=== PATIENT | female | born 1960 | race Caucasian/White ===

== ENCOUNTER 2017-05-11 09:29 | Outpatient (CLI) | payer MEDICAID ==
--- NOTE | 2017-05-11 11:24 | XRAY Report ---
COMPLETE CERVICAL SPINE: 05/11/2017 CLINICAL INDICATION: Neck pain. FINDINGS: AP, lateral, oblique, odontoid views of the cervical spine demonstrate reversal of the nor mal cervical lordosis. Degenerative disk and facet disease is present, with disk space narrowing wor st at C5-6. There is osseous neural foraminal narrowing on the left at C5-6 and C6-7. There is no e vidence of acute fracture. The prevertebral soft tissues appear unremarkable. IMPRESSION: DEGENERATIVE CHANGES, WITH LEFT-SIDED OSSEOUS NEURAL FORAMINAL NARROWING. JOB #: [id number] EXT JOB #:[id number]
== END 2017-05-11 09:30 ==
LOC: DI 09:29
PROVIDERS: ATTEND Family Medicine
DX: M47.892 Other spondylosis, cervical region (principal); M50.30 Other cervical disc degeneration, unspecified cervical region
CPT/HCPCS: 72050

== ENCOUNTER 2017-06-15 10:16 | Outpatient (CLI) | payer MEDICAID ==
--- NOTE | 2017-06-16 11:22 | Mammography Report ---
REVISED: THIS REPORT WAS ORIGINALLY SIGNED ON 06/16/2017 @ 1235. ORDERING PROVIDER FIELD REVISED ON 06/17/2017. DIGITAL BILATERAL SCREENING MAMMOGRAM: 06/15/2017 COMPARISON: Mammogram 02/24/2009. INDICATION: Screening mammography. TECHNIQUE: Bilateral MLO and CC breast tissue views. FINDINGS: The breast parenchyma is heterogeneously dense which may limit the sensitivity of mammography. There are new masses of the hgj-eo-nqvyybkdg lateral right breast. They are subcentimeter and appear to have fatty michaelle, most suggestive of intramammary lymph nodes. There is a new partially circumscribed focal asymmetry of the left upper outer breast at mid depth. No architectural distortion or concerning cluster of microcalcifications are seen in other regards. IMPRESSION: 1. BIRADS CATEGORY 0. ADDITIONAL IMAGING IS REQUIRED. 2. RECOMMEND SPOT COMPRESSION VIEWS OF THE LEFT BREAST WITH LEFT BREAST ULTRASOUND INDICATED. STANDARD QUALIFYING STATEMENTS 1. This examination was reviewed with the aid of Computer-Aided Detection (CAD). 2. A negative or benign imaging report should not delay biopsy if clinically suspicious findings are present. Consider surgical consultation if warranted. More than 5% of cancers are not identified by imaging. 3. Dense breasts may obscure an underlying neoplasm. JOB #: [id number] EXT JOB #: [id number] [facility]
== END 2017-06-15 10:17 | disposition home or self-care (01) ==
LOC: DI.N 10:16
PROVIDERS: ATTEND Family Medicine
DX: Z12.31 Encounter for screening mammogram for malignant neoplasm of breast (principal)
CPT/HCPCS: 77067

== ENCOUNTER 2017-07-07 09:57 | Outpatient (CLI) | payer MEDICAID ==
--- NOTE | 2017-07-08 14:02 | Ultrasound Report ---
DATE OF SERVICE: 07/07/2017 LEFT BREAST ULTRASOUND: 07/07/2017 CLINICAL INDICATION: Persistent nodule on mammogram. TECHNIQUE: Real-time scanning was performed with uniforms sales representative static images obtained. FINDINGS: Ultrasound of the left upper outer quadrant was performed. At the 1:30 position, approxim ately 8 cm from the nipple, there is a 0.7 x 0.7 x 0.6 cm lymph node, accounting for the mammographic abnorma lity. No sonographically suspicious findings are identified. IMPRESSION: Intramammary lymph node, accounting for the mammographic abnormality. RECOMMENDATION: Routine annual screening unless otherwise clinically indicated. BIRADS category 2 - benign findings. TD: 07/07/2017 11:51
--- NOTE | 2017-07-08 14:02 | Mammography Report ---
DATE OF SERVICE: 07/07/2017 DIGITAL DIAGNOSTIC LEFT MAMMOGRAM: 07/07/2017 CLINICAL INDICATION: Possible nodule on screening. TECHNIQUE: Left true lateral and spot compression views. COMPARISON: 06/15/2017, 02/24/2009. FINDINGS: The left breast again demonstrates scattered fibroglandular densities. A circumscribed nodule persists in the left upper outer quadrant. No associated calcifications are seen. The nodule measures approximately 9 mm. Please also refer to left breast ultrasound of the same day. IMPRESSION: Benign findings, with an intramammary lymph node on ultrasound accounting for the mammographic abnormality. RECOMMENDATION: Routine annual screening unless otherwise clinically indicated. BIRADS category 2 - benign findings. STANDARD QUALIFYING STATEMENTS 1. This examination was reviewed with the aid of Computer-Aided Detection (CAD) . 2. A negative or benign imaging report should not delay biopsy if clinically suspicious findings are present. Consider surgical consultation if warranted. More than 5% of cancers are not identified by imaging. 3. Dense breasts may obscure an underlying neoplasm. TD: 07/07/2017 11:54 MARTELL
== END 2017-07-07 09:58 | disposition home or self-care (01) ==
LOC: DI 09:57
PROVIDERS: ATTEND Family Medicine
DX: R92.2 Inconclusive mammogram (principal)
CPT/HCPCS: 76642

== ENCOUNTER 2018-01-13 13:10 | Outpatient (CLI) | payer MEDICAID ==
--- NOTE | 2018-01-13 13:57 | XRAY Report ---
Procedure Date: 01/13/2018 Accession Number: [id number] / [id number] Procedure: XR - Chest 2 View X-Ray CPT Code: 74342 FULL RESULT: EXAM: Chest 2 View X-Ray DATE: 01/13/2018 1:40 PM CLINICAL HISTORY: SPRAIN OF RIBS COMPARISON: None. TECHNIQUE: 2 views. FINDINGS: Lungs/Pleura: No focal opacities evident. No pneumothorax or pleural effusion. Normal volumes. Mediastinum: Heart and mediastinal contours are unremarkable. Other: No obvious displaced rib fracture. IMPRESSION: Normal 2-view chest radiography. RADIA
== END 2018-01-13 13:11 | disposition home or self-care (01) ==
LOC: DI 13:10
PROVIDERS: ATTEND Internal Medicine
DX: S23.41XA Sprain of ribs, initial encounter (principal)
CPT/HCPCS: 71046

== ENCOUNTER 2019-07-15 08:13 | Outpatient (CLI) | payer MEDICAID ==
--- NOTE | 2019-07-15 23:11 | Ultrasound Report ---
Reason: EPIGASTRIC PAIN Procedure Date: 07/15/2019 Accession Number: [id number] / [id number] Procedure: US - Abdomen Complete CPT Code: Final Report FULL RESULT: EXAM: ABDOMEN ULTRASOUND EXAM DATE: 07/15/2019 09:14 AM. CLINICAL HISTORY: EPIGASTRIC PAIN. COMPARISON: None. TECHNIQUE: Real-time scanning was performed with static images obtained. FINDINGS: Liver: Unremarkable echotexture. 16.1 cm. Main portal vein flow: Hepatopetal. Gallbladder: No stones, wall thickening, or sonographic Mondragon's sign. Multiple gallbladder polyps measuring up to 4 mm. Biliary System: Common bile duct measures 8 mm. No intrahepatic ductal dilatation. Pancreas: Visualized portions of the pancreas are unremarkable. Kidneys: Right: 11.1 cm longitudinally. No contour-deforming mass, shadowing stones, or hydronephrosis. Left: 7.5 cm longitudinally. No contour-deforming mass, shadowing stones, or hydronephrosis. Simple appearing 1.1 cm inferior cyst. Spleen: 9.7 cm Imaged portions of the aorta and IVC are unremarkable. IMPRESSION: No acute sonographic abnormalities. Multiple tiny gallbladder polyps measuring up to 4 mm. RADIA
== END 2019-07-15 08:14 | disposition home or self-care (01) ==
LOC: DI 08:13
PROVIDERS: ATTEND Family Medicine
DX: R10.13 Epigastric pain (principal); K82.4 Cholesterolosis of gallbladder
CPT/HCPCS: 76700

== ENCOUNTER 2019-08-02 10:39 | Outpatient (CLI) | payer MEDICAID ==
--- NOTE | 2019-08-02 14:03 | Ultrasound Report ---
Reason: HYPOTHYROIDISM Procedure Date: 08/02/2019 Accession Number: [id number] / [id number] Procedure: US - Head or Neck Soft Tissue CPT Code: Final Report FULL RESULT: EXAM: THYROID ULTRASOUND EXAM DATE: 08/02/2019 11:28 AM. CLINICAL HISTORY: HYPOTHYROIDISM. COMPARISON: None. TECHNIQUE: Real time sonographic imaging of the thyroid was performed by the non morse intercept technician. Multiple telephone claims representative static images were saved for review. FINDINGS: THYROID GLAND: Right Lobe: 4.8 x 1.1 x 1.1 cm, volume 3.0 cc. Heterogeneous Right Lobe Nodules: 1. Inferior pole noncalcified heterogeneous hypoechoic 1 x 0.7 x 0.8 cm Left Lobe: 4.4 x 1.5 x 1.3 cm, volume 4.5 cc. Heterogeneous Left Lobe Nodules: 1. Inferior pole heterogeneous noncalcified 1.5 x 0.9 x 1.1 cm nodule Isthmus: 0.11 cm AP. Isthmic Nodules: None. LYMPH NODES: No adenopathy demonstrated in the central or lateral compartment. OTHER: None. IMPRESSION: 1. Left lower pole 1.5 cm nodule meets criteria for biopsy. Management recommendations are based on 2015 [place] [employer] Management Guidelines for Adult Patients with Thyroid Nodules and Differentiated Thyroid Cancer. RADIA
== END 2019-08-02 10:40 | disposition home or self-care (01) ==
LOC: DI 10:39
PROVIDERS: ATTEND Internal Medicine
DX: E04.2 Nontoxic multinodular goiter (principal)
CPT/HCPCS: 76536

== ENCOUNTER 2020-01-03 08:17 | Outpatient (CLI) | payer MEDICAID ==
[2020-01-03] MEDS ORDERED: IOVERSOL 320 50 ML VIAL ONE (08:26)
[2020-01-03] MEDS ORDERED: IOVERSOL 320 100 ML VIAL IVP ONE ×2 (08:26→13:23)
--- NOTE | 2020-01-03 10:53 | CT Report ---
PROCEDURE: Abdomen/Pelvis W INDICATIONS: EPIGASTRIC PAIN CONTRAST: IV CONTRAST: Optiray 320 ml: 100 PO CONTRAST: Optiray 320 ml50 TECHNIQUE: After the administration of oral and intravenous contrast, 5 mm thick sections acquired from the diap hragms to the symphysis. 5 mm thick coronal and sagittal reformats were acquired. For radiation dos e reduction, the following was used: automated exposure control, adjustment of mA and/or kV accordin g to patient size. COMPARISON: Correlation is made with ultrasounds 06/24/2016 and 07/15/2019. Correlation is also made with lumbar MRI 04/28/2016. FINDINGS: Image quality: Excellent. ABDOMEN: Lung bases: A subpleural nodule can be seen involving the right lower lobe, as on series 4 image 38 m easuring 7 mm. The lung bases otherwise appear clear. Heart size is normal. Solid organs: Liver and spleen are normal in size and enhancement. An accessory spleen is incident ally noted along the hilum of the primary spleen. Gallbladder wall does not appear thickened. Bi liary system is non dilated. Pancreas enhances normally. No adrenal nodules. Kidneys demonstrate n ormal size and enhancement, without hydronephrosis. Peritoneum and bowel: Bowel loops demonstrate normal wall thickness and caliber. No free fluid or a ir. A normal appendix is incidentally noted. Nodes and vessels: No retroperitoneal or mesenteric adenopathy by size criteria. Aorta and inferior vena cava are normal in size. Miscellaneous: No ventral hernias. PELVIS: Genitourinary: Bladder wall thickness is normal. The uterus demonstrates an unremarkable appearance for age. No adnexal masses are seen. Note is made that the labia are asymmetric, with greater prominence of soft tissue on the left side, as on series 3 image 98. Miscellaneous: No inguinal hernias or adenopathy. Note is made of pelvic phleboliths. Bones: No suspicious bony lesions. No vertebral body compression fractures. Degenerative changes a re seen, which are most prominent at the L2-L3 and the L5-S1 levels. Milder degenerative changes are seen elsewhere. Mild levoconvex scoliotic curvature is seen. IMPRESSION: No imaging explanation is found for the patient's presenting symptoms. There is a 7 mm right lower lobe subpleural nodule seen. This may represent a lymph node. For further evaluation, a full chest CT with IV contrast is now recommended to evaluate for potential additional pulmonary nodules. Asymmetric labia. Please correlate with patient history and physical examination findings. Incidental note is made of: Accessory splenule Normal appendix Levoconvex scoliotic curvature Focal L2-L3 and L5-S1 degenerative change Reviewed by: Baldemar Krishnamurthy MD on 01/03/2020 9:52 AM AKVERO Approved by: Baldemar Krishnamurthy MD on 01/03/2020 9:52 AM AKDT Station ID: [id number]
[2020-01-03] MEDS ORDERED: IOVERSOL 320 50 ML VIAL PO ONE (13:22)
== END 2020-01-03 08:18 | disposition home or self-care (01) ==
LOC: DI 08:17
PROVIDERS: ATTEND Internal Medicine Hematology & Oncology
DX: D64.9 Anemia, unspecified (principal); R10.13 Epigastric pain; R91.1 Solitary pulmonary nodule; N90.89 Other specified noninflammatory disorders of vulva and perineum
CPT/HCPCS: 74177; Q9967

== ENCOUNTER 2020-01-24 09:28 | Outpatient (CLI) | payer MEDICAID ==
--- NOTE | 2020-01-24 10:37 | CT Report ---
PROCEDURE: CT chest without IV contrast INDICATIONS: Lung nodule follow-up TECHNIQUE: Noncontrast 5 mm thick sections acquired from the pulmonary apices to the posterior costophrenic angl es. 7 mm thick coronal and sagittal MIP reformats were then acquired. For radiation dose reduction, the following was used: automated exposure control, adjustment of mA and/or kV according to patient size. COMPARISON: 01/03/2020 CT abdomen and pelvis FINDINGS: Image quality: Excellent. Lungs and pleura: Previously seen subpleural nodule in the right lower lobe is better characterized o n the current study (series 4 image 34), appearing consistent with atelectasis. There is an additiona l pulmonary nodule in the right lower lobe on series 4 image 236 measuring 8 mm and another in the ri ght lower lobe on series 4 image 21 measuring 3 mm. Finally there is an additional posterior subpleur al right lower lobe nodule on series 4 image 28 measuring 5 mm. There is no consolidation. The left l elizabeth is clear. Pleural spaces are clear with no significant pleural abnormality. Mediastinum: Heart size is normal. No pericardial effusion. No mediastinal adenopathy by size crit eria. Thoracic aorta and central pulmonary arteries are normal in size. Esophagus is normal in surendra eboni. No hiatal hernia. Bones and chest wall: No acute or suspicious osseous lesion. IMPRESSION: Multiple right lower lobe pulmonary nodules which have a benign appearance. If the patient has a hist ory of cancer, a smoking history, or other risk factors for development of lung cancer, then a follow -up CT is recommended in 12 months. Otherwise, no follow-up is recommended. Please see 2017 [employer] [employer] guidelines for further details. Reviewed by: Garry Valle MD on 01/24/2020 10:36 AM PDT Approved by: Garry Valle MD on 01/24/2020 10:36 AM PDT Station ID: [id number]
== END 2020-01-24 09:29 | disposition home or self-care (01) ==
LOC: DI 09:28
PROVIDERS: ATTEND Internal Medicine Hematology & Oncology
DX: R91.8 Other nonspecific abnormal finding of lung field (principal)
CPT/HCPCS: 71250

== ENCOUNTER 2020-02-05 12:24 | Outpatient (CLI) | payer MEDICAID ==
[2020-02-06 11:24] LABS: HEPATITIS A IGM NON-REACTIVE (NON-REACTIVE); HEPATITIS B SURFACE ANTIGEN NON-REACTIVE (NON-REACTIVE); HEPATITIS C ANTIBODY NON-REACTIVE (NON-REACTIVE)
== END 2020-02-05 12:25 | disposition home or self-care (01) ==
LOC: LAB 12:24
PROVIDERS: ATTEND Internal Medicine Hematology & Oncology
DX: R74.8 Abnormal levels of other serum enzymes (principal)
CPT/HCPCS: 36415; 80074

== ENCOUNTER 2020-02-05 12:37 | Outpatient (CLI) | payer MEDICAID ==
--- NOTE | 2020-02-06 11:33 | Mammography Report ---
BILATERAL DIGITAL SCREENING MAMMOGRAM 3D/2D: 02/05/2020 CLINICAL: Routine screening. Comparison is made to exams dated: 07/07/2017 mammogram and 06/15/2017 mammogram - [facility]. There are scattered fibroglandular elements in both breasts. No significant masses, calcifications, or other findings are seen in either breast. There has been no significant interval change. IMPRESSION: NEGATIVE There is no mammographic evidence of malignancy. A 1 year screening mammogram is recommended. This exam was interpreted at Station ID: [id number]. NOTE: For mammograms, a report in lay terms will be sent to the patient. Approximately 15% of breast malignancies will not be visualized mammographically. In the management of a palpable breast mass, a negative mammogram must not discourage biopsy of a clinically suspicious lesion. Electronically Signed By: Traci burgos/rob:02/05/2020 14:51:20 ACR BI-RADS Category 1: Negative 3341F PARENCHYMAL PATTERN: (A) - The breast(s) demonstrate(s) scattered fibroglandular densities. BI-RADS CATEGORY: (1) - 1 RECOMMENDATION: (ANNUAL) - Recommend routine annual screening mammography. [id number] 1 year screening LATERALITY: (B)
== END 2020-02-05 12:38 | disposition home or self-care (01) ==
LOC: DI 12:37
PROVIDERS: ATTEND Internal Medicine
DX: Z12.31 Encounter for screening mammogram for malignant neoplasm of breast (principal)
CPT/HCPCS: 77063; 77067

== ENCOUNTER 2020-04-19 16:00 | Emergency (ER) | payer OTHER, MEDICAID ==
[2020-04-19 16:10] VITALS: BP 161/98
--- NOTE | 2020-04-19 16:15 | ED Physician Documentation ---
PD HPI UPPER EXT INJURY - Stated complaint Stated Complaint: RT WRIST INJ - Chief complaint Chief Complaint: Ext Problem - History obtained from History obtained from: Patient (She was at work today and tripped and fell on outstretched right wrist and has mild wrist pain. She does not think it is broken, more here for L&I purposes than anything else. No other injuries. Declines pain medication on initial evaluation.) Review of Systems Constitutional: reports: Reviewed and negative Cardiac: reports: Reviewed and negative Respiratory: reports: Reviewed and negative PD PAST MEDICAL HISTORY - Past Surgical History Past Surgical History: No - Present Medications Home Medications: Ambulatory Orders Medication Instructions Recorded Confirmed Hydrocodone/Acetaminophen [[place] 1 each PO Q6H PRN #20 tablet 01/08/16 5-325 Tablet] Ibuprofen [Motrin] 600 mg PO TID #30 tab 01/08/16 methocarbamoL [Robaxin] 500 mg PO Q6H PRN #25 tablet 01/08/16 Terbinafine [LamISIL] 250 mg PO DAILY PM #14 tablet 03/25/16 - Allergies Allergies/Adverse Reactions: Allergies Allergy/AdvReac Type Severity Reaction Status Date / Time Penicillins Allergy Unknown Verified 03/25/16 14:51 - Social History Does the pt smoke?: No Smoking Status: Never smoker Does the pt drink ETOH?: Yes Does the pt have substance abuse?: No - Immunizations Immunizations are current?: No PD ED PE NORMAL - Vitals Vital signs reviewed: Yes - General General: Alert and oriented X 3, No acute distress - Extremities Extremities: Other (Very mild tenderness over the dorsal wrist without focal snuffbox tenderness or pain with axial loading of the thumb. Relatively full range of motion of the wrist but does have pain with extreme extension.) - Neuro Neuro: Alert and oriented X 3, Normal speech - Psych Psych: Normal mood, Normal affect Results - Vitals Vitals: Vital Signs - 24 hr 04/19/20 16:08 Temperature 36.8 C Heart Rate 78 Respiratory 16 Rate Blood Pressure 161/98 H O2 Saturation 98 Oxygen O2 Source Room air - Rads (name of study) 4 view right wrist x-ray Radiology: EMP read contemporaneously (Normal) Departure - Departure Disposition: 01 Home, Self Care Clinical Impression: Right wrist sprain Qualifiers: Encounter type: initial encounter Qualified Code(s): S63.501A - Unspecified sprain of right wrist, initial encounter Condition: Good Record reviewed to determine appropriate education?: Yes Instructions: ED Sprain Wrist Comments: Use the splint that you already have, ibuprofen as needed for pain. Also ice. Follow-up with your doctor in a week if not improving for repeat x-rays. Forms: Activity restrictions
--- NOTE | 2020-04-19 16:59 | XRAY Report ---
PROCEDURE: Wrist 4 View RT INDICATIONS: wrist inj TECHNIQUE: 4 views of the wrist were acquired. COMPARISON: None. FINDINGS: Bones: No acute fractures or dislocations. Normal alignment. Degenerative changes of the first carpo metacarpal joint. No suspicious bony lesions. Scaphoid view: Scaphoid appears intact. Scapholunate interval is maintained. Soft tissues: No suspicious soft tissue calcifications. IMPRESSION: Right wrist without acute fracture or dislocation. If there is persistent clinical concern for a radiographically occult fracture, recommend immobilizat ion and repeat imaging in 10 to 14 days. Reviewed by: Marcellus Owens MD on 04/19/2020 4:58 PM PDT Approved by: Marcellus Owens MD on 04/19/2020 4:58 PM PDT Station ID: [id number]
== END 2020-04-19 17:30 | disposition home or self-care (01) ==
LOC: ED 16:00
DX: S63.501A Unspecified sprain of right wrist, initial encounter (principal); W01.0XXA Fall on same level from slipping, tripping and stumbling without subsequent striking against object, initial encounter; Y92.89 Other specified places as the place of occurrence of the external cause; Y99.0 Civilian activity done for income or pay
CPT/HCPCS: 1040M; 99282; 99283

== ENCOUNTER 2020-06-30 17:22 | Outpatient (CLI) | payer MEDICAID | END 2020-06-30 17:23 | disposition home or self-care (01) | LOC: COV 17:22 | PROVIDERS: ATTEND Family Medicine | DX: Z20.828 Contact with and (suspected) exposure to other viral communicable diseases (principal) ==

== ENCOUNTER 2020-11-20 07:06 | Outpatient (CLI) | payer MEDICAID ==
--- NOTE | 2020-11-20 10:23 | CT Report ---
PROCEDURE: CHEST WO INDICATIONS: LUNG NODULE TECHNIQUE: Noncontrast 5 mm thick sections acquired from the pulmonary apices to the posterior costophrenic angl es. 7 mm thick coronal and sagittal MIP reformats were then acquired. For radiation dose reduction, the following was used: automated exposure control, adjustment of mA and/or kV according to patient size. COMPARISON: CT chest 01/24/2020. FINDINGS: Image quality: Excellent. Lungs and pleura: Several pulmonary nodules (mean diameter measured and compared to 01/24/2020). For example: -Right minor fissure 0.5 cm, (4/150), previously 0.5 cm. -Right lower lobe subpleural 0.4 cm, (4/186), previously -Right lower lobe 0.6 cm, (4/228), previously 0.6 cm. No pulmonary mass. No new or enlarging pulmonary nodules seen. Accessory left fissures. No acute air space opacities. No pleural effusions or pneumothorax. Central and peripheral airways are patent an d normal in caliber. Mediastinum: Heart size is normal. No pericardial effusion. No mediastinal adenopathy by size crit eria. Thoracic aorta and central pulmonary arteries are normal in size. Esophagus is normal in surendra eboni. No hiatal hernia. Bones and chest wall: No suspicious bony lesions. No vertebral body compression fractures. No axil chente or supraclavicular adenopathy by size criteria. Thyroid is unremarkable. Abdomen: Visualized upper abdominal solid organs and bowel loops appear normal in the absence of con trast. IMPRESSION: Stable scattered pulmonary nodules since January 2020. Largest with a mean diameter of 0.6 cm. Recommend follow-up low-dose CT chest in approximately 1 year to demonstrate long-term stability. Reviewed by: Rashad Henry MD on 11/20/2020 10:21 AM PDT Approved by: Rashad Henry MD on 11/20/2020 10:21 AM PDT Station ID: [id number]
== END 2020-11-20 07:07 | disposition home or self-care (01) ==
LOC: DI 07:06
PROVIDERS: ATTEND Internal Medicine Hematology & Oncology
DX: R91.8 Other nonspecific abnormal finding of lung field (principal)

== ENCOUNTER 2020-11-29 12:40 | Outpatient (CLI) | payer MEDICAID ==
[2020-11-29 13:06] LABS: BASOPHILS # (AUTO) 0.1 10^3/uL (0.0-0.1); EOSINOPHILS # (AUTO) 0.2 10^3/uL (0.0-0.7); EOSINOPHILS % (AUTO) 4.1 %; HCT - HEMATOCRIT 43.7 % (37.0-47.0); HGB - HEMOGLOBIN 15.1 g/dL (12.0-16.0); LYMPHOCYTES # (AUTO) 1.2 10^3/uL (1.5-3.5); LYMPHOCYTES % (AUTO) 24.4 %; MEAN CORPUSCULAR HEMOGLOBIN 34.2 pg (27.0-31.0); MEAN CORPUSCULAR HGB CONC 34.6 g/dL (32.0-36.0); MEAN CORPUSCULAR VOLUME 98.9 fL (81.0-99.0); MONOCYTES # (AUTO) 0.5 10^3/uL (0.0-1.0); MONOCYTES % (AUTO) 9.6 %; NEUTROPHILS # (AUTO) 3.1 10^3/uL (1.5-6.6); NEUTROPHILS % (AUTO) 60.5 %; PLT - PLATELET COUNT 226 10^3/uL (130-450); RED BLOOD COUNT 4.42 10^6/uL (4.20-5.40); RED CELL DISTRIBUTION WIDTH 12.1 % (12.0-15.0); WHITE BLOOD COUNT 5.1 x10^3/uL (4.8-10.8)
[2020-11-29 13:32] LABS: ALBUMIN 4.1 g/dL (3.2-5.5); ALBUMIN/GLOBULIN RATIO 1.4 (1.0-2.2); BILIRUBIN,TOTAL 0.9 mg/dL (0.2-1.0); CALCIUM 9.5 mg/dL (8.5-10.3); CREATININE 0.8 mg/dL (0.4-1.0); POTASSIUM 4.5 mmol/L (3.5-5.0); TOTAL PROTEIN 7.1 g/dL (6.7-8.2)
[2020-11-29 13:49] LABS: THYROID STIMULATING HORMONE 4.26 uIU/mL (0.34-5.60)
== END 2020-11-29 12:41 | disposition home or self-care (01) ==
LOC: LAB 12:40
PROVIDERS: ATTEND Internal Medicine Hematology & Oncology
DX: D51.0 Vitamin B12 deficiency anemia due to intrinsic factor deficiency (principal); D64.9 Anemia, unspecified
CPT/HCPCS: 36415; 80053; 82607; 84443; 85025

== ENCOUNTER 2021-01-29 09:38 | Emergency (ER) | payer MEDICAID ==
[2021-01-29] MEDS ORDERED: ALBUTEROL NEB 2.5 MG/3 ML INH STA (10:26)
[2021-01-29] MEDS ORDERED: BENZONATATE 100 MG CAPSULE PO STA (10:26)
--- NOTE | 2021-01-29 10:28 | ED Physician Documentation ---
PD HPI ABD PAIN - Stated complaint Stated Complaint: Abd Pain - Chief complaint Chief Complaint: Abd Pain - History obtained from History obtained from: Patient - Additional information Additional information: 60-year-old woman with no history of abdominal surgeries developed a viral URI which is improving about a 6 days ago. Had cough and fever, but no fever in 5 days. She is fully immunized against Covid. Over the last 4 to 5 days though has developed right lower quadrant pain which is worse when she coughs and moves. No associated fevers or nausea. She is chronically constipated but no di fferent than usual. Review of Systems Ten Systems: 10 systems reviewed and negative Constitutional: denies: Fever, Chills Eyes: denies: Loss of vision, Photophobia Cardiac: denies: Chest pain / pressure, Palpitations PD PAST MEDICAL HISTORY - Past Surgical History Past Surgical History: No - Present Medications Home Medications: Ambulatory Orders Medication Instructions Recorded Confirmed Hydrocodone/Acetaminophen [[place] 1 each PO Q6H PRN #20 tablet 01/08/16 5-325 Tablet] Ibuprofen [Motrin] 600 mg PO TID #30 tab 01/08/16 methocarbamoL [Robaxin] 500 mg PO Q6H PRN #25 tablet 01/08/16 Terbinafine [LamISIL] 250 mg PO DAILY PM #14 tablet 03/25/16 Albuterol Sulf [Ventolin Hfa 1 - 2 puffs INH Q4HR PRN #1 inhaler 01/29/21 Inhaler] Benzonatate [Tessalon] 200 mg PO QID PRN #20 cap 01/29/21 - Allergies Allergies/Adverse Reactions: Allergies Allergy/AdvReac Type Severity Reaction Status Date / Time Penicillins Allergy Unknown Verified 01/29/21 09:58 - Social History Does the pt smoke?: No Smoking Status: Never smoker Does the pt drink ETOH?: Yes Does the pt have substance abuse?: No - Immunizations Immunizations are current?: No PD ED PE NORMAL - Vitals Vital signs reviewed: Yes - General General: Alert and oriented X 3, No acute distress - HEENT HEENT: PERRL, EOMI - Neck Neck: Supple, no meningeal sign, No bony TTP, No bruit - Cardiac Cardiac: RRR, No murmur - Respiratory Respiratory: No respiratory distress, Other (Frequent cough, rhonchorous and wheezy throughout.) - Abdomen Abdomen: Soft, Other (Mild tenderness in the right lower quadrant, no surgical signs) - Extremities Extremities: No edema, No calf tenderness / cord - Neuro Neuro: Alert and oriented X 3, Normal speech Results - Vitals Vitals: Vital Signs - 24 hr 01/29/21 01/29/21 01/29/21 09:53 10:44 11:00 Temperature 36.8 C Heart Rate 64 68 68 Respiratory 20 20 16 Rate Blood Pressure 140/79 H 140/78 H O2 Saturation 96 01/29/21 01/29/21 14:52 16:00 Temperature 36.9 C 36.8 C Heart Rate 53 L 60 Respiratory 16 16 Rate Blood Pressure 119/69 120/70 O2 Saturation 95 98 Oxygen O2 Source Room air - Labs Labs: Laboratory Tests 01/29/21 01/29/21 10:40 10:40 WBC 5.9 RBC 4.55 Hgb 15.5 Hct 44.6 MCV 98.0 MCH 34.1 H MCHC 34.8 RDW 12.4 Plt Count 198 MPV 9.2 Neut # (Auto) 3.7 Lymph # (Auto) 1.3 L Cecil # (Auto) 0.6 Eos # (Auto) 0.3 Baso # (Auto) 0.1 Absolute Nucleated RBC 0.00 Nucleated RBC % 0.0 Sodium 138 Potassium 4.2 Chloride 103 Carbon Dioxide 24 Anion Gap 11.0 BUN 15 Creatinine 0.6 Estimated GFR (MDRD) 102 Glucose 96 Calcium 10.0 Total Bilirubin 1.0 AST 68 H ALT 170 H Alkaline Phosphatase 165 H Total Protein 7.7 Albumin 4.4 Globulin 3.3 Albumin/Globulin Ratio 1.3 Lipase 26 PD MEDICAL DECISION MAKING - ED course ED course: 60-year-old woman with resolving cough with severe abdominal pain related to same. Differential diagnosis includes kidney stone, muscular pain, gallbladder etiology or appendicitis. CTA was negative, this was followed by ultrasound given mild elevation liver enzymes which was also without evidence of biliary pathology. Close follow-up was advised. Departure - Departure Disposition: 01 Home, Self Care Clinical Impression: Cough Abdominal pain Qualifiers: Abdominal location: right lower quadrant Qualified Code(s): R10.31 - Right lower quadrant pain Condition: Good Record reviewed to determine appropriate education?: Yes Instructions: Abdominal Pain Prescriptions: Albuterol Sulf [Ventolin Hfa Inhaler] 1 - 2 puffs INH Q4HR PRN #1 inhaler PRN Reason: Shortness Of Air/Wheezing Benzonatate [Tessalon] 200 mg PO QID PRN #20 cap PRN Reason: Cough Comments: You were seen today for abdominal pain, there is no evidence of gallstones or other intra-abdominal abdominal abnormality of significance. Again you do have the pulmonary nodule but this is very stable and does not require specific follow-up. Return for new or worsening symptoms. As discussed despite no gallstones you do have mildly elevated liver enzymes and this should be rechecked with your doctor in a week or so. Specifically: AST 68, ALT 170, alkaline phosphatase 165, total bilirubin 1.0. Call your doctor to arrange a follow-up appointment. Return if worsening in any way. Discharge Date/Time: 01/29/21 16:05
[2021-01-29 10:47] LABS: BASOPHILS # (AUTO) 0.1 10^3/uL (0.0-0.1); BASOPHILS % (AUTO) 0.9 %; EOSINOPHILS # (AUTO) 0.3 10^3/uL (0.0-0.7); EOSINOPHILS % (AUTO) 4.8 %; HCT - HEMATOCRIT 44.6 % (37.0-47.0); HGB - HEMOGLOBIN 15.5 g/dL (12.0-16.0); LYMPHOCYTES # (AUTO) 1.3 10^3/uL (1.5-3.5); LYMPHOCYTES % (AUTO) 22.1 %; MEAN CORPUSCULAR HEMOGLOBIN 34.1 pg (27.0-31.0); MEAN CORPUSCULAR HGB CONC 34.8 g/dL (32.0-36.0); MEAN PLATELET VOLUME 9.2 fL (7.9-10.8); MONOCYTES # (AUTO) 0.6 10^3/uL (0.0-1.0); MONOCYTES % (AUTO) 9.4 %; NEUTROPHILS # (AUTO) 3.7 10^3/uL (1.5-6.6); NEUTROPHILS % (AUTO) 62.6 %; PLT - PLATELET COUNT 198 10^3/uL (130-450); RED BLOOD COUNT 4.55 10^6/uL (4.20-5.40); RED CELL DISTRIBUTION WIDTH 12.4 % (12.0-15.0); WHITE BLOOD COUNT 5.9 x10^3/uL (4.8-10.8)
[2021-01-29] MEDS ORDERED: IOVERSOL 320 100 ML VIAL IVP ONE ×2 (11:00→16:30)
[2021-01-29 11:01] LABS: ALBUMIN 4.4 g/dL (3.2-5.5); ALBUMIN/GLOBULIN RATIO 1.3 (1.0-2.2); CREATININE 0.6 mg/dL (0.4-1.0); POTASSIUM 4.2 mmol/L (3.5-5.0); TOTAL PROTEIN 7.7 g/dL (6.7-8.2)
--- NOTE | 2021-01-29 13:48 | CT Report ---
PROCEDURE: Abdomen/Pelvis W INDICATIONS: IV only, RLQ pain CONTRAST: IV CONTRAST: Optiray 320 ml: 100 PO CONTRAST: *NO PO CONTRAST TECHNIQUE: After the administration of IV contrast, 5 mm thick sections acquired from the diaphragms to the symp hysis. 5 mm thick coronal and sagittal reformats were acquired. For radiation dose reduction, the f ollowing was used: automated exposure control, adjustment of mA and/or kV according to patient size. COMPARISON: 01/03/2020. FINDINGS: Image quality: Excellent. ABDOMEN: Lung bases: Patient's known 6 mm posterior lateral right lower lobe solid nodule remains unchanged in size and appearance series 4 image 4. Heart size is normal. Solid organs: Liver and spleen are normal in size and enhancement. Gallbladder is within normal means its. Biliary system is non dilated. Pancreas enhances normally. No adrenal nodules. Kidneys demon strate normal size and enhancement, without hydronephrosis. Small bilateral renal cortical cysts are again seen unchanged from prior studies. Peritoneum and bowel: Bowel loops demonstrate normal wall thickness and caliber. No free fluid or a ir. Appendix is visualized and is within normal limits. Mild fecal stasis in the colon is seen. Nodes and vessels: No retroperitoneal or mesenteric adenopathy by size criteria. Aorta and inferior vena cava are normal in size. Miscellaneous: No ventral hernias. PELVIS: Genitourinary: Bladder wall thickness is normal. Uterus and bilateral adnexa show no gross abnormal ity. Miscellaneous: No inguinal hernias or adenopathy. Bones: No suspicious bony lesions. No vertebral body compression fractures. Degenerative endplate changes are noted at L2-3 to L5-S1 levels. IMPRESSION: 1. Normal appendix. No abnormal bowel wall thickening. No mesenteric fat stranding. No free fluid of free air. 2. No acute inflammatory process within abdomen or pelvis. 3. Stable 6 mm solid nodule in right lower lobe. Reviewed by: Shayne Moore MD on 01/29/2021 1:46 PM PDT Approved by: Shayne Moore MD on 01/29/2021 1:46 PM PDT Station ID: [id number]
[2021-01-29 16:05] VITALS: BP 120/70
--- NOTE | 2021-01-29 16:12 | Ultrasound Report ---
PROCEDURE: Abdomen Limited INDICATIONS: abd pain and elevated liver enzymes. TECHNIQUE: Real-time focused scanning was performed of the right upper quadrant, with image documentation. COMPARISON: CT abdomen pelvis 01/29/2021, ultrasound abdomen 07/15/2019 FINDINGS: Liver is normal in size without discrete mass identified. Gallbladder demonstrates no gallstones, wall thickening, or pericholecystic fluid. No definite intrahepatic biliary ductal dilatation. Common bile duct at the upper limits of normal in caliber measuring up to 6 mm. The right kidney measures up to 10.8 cm. No hydronephrosis. There are a few scattered small echogenic nonshadowing foci within the right kidney which are nonspecific. IMPRESSION: 1. No evidence of cholelithiasis or cholecystitis. 2. Common bile duct at the upper limits of normal in caliber. Recommend correlation with laboratory v alues for possible developing biliary ductal dilatation which was not visualized on the prior CT. Reviewed by: Figueroa Delgadillo MD on 01/29/2021 4:11 PM PDT Approved by: Figueroa Delgadillo MD on 01/29/2021 4:11 PM PDT Station ID: [id number]
== END 2021-01-29 16:05 | disposition home or self-care (01) ==
LOC: ED 09:38
DX: R10.31 Right lower quadrant pain (principal); R05 Cough
CPT/HCPCS: 36415; 74177; 76705; 80053; 83690; 85025; 94640; 94664; 99284; A9270; Q9967

== ENCOUNTER 2021-07-28 16:34 | Emergency (ER) | payer MEDICAID, OTHER ==
[2021-07-28] MEDS ORDERED: IBUPROFEN 600 MG TABLET PO STA (17:06)
[2021-07-28] MEDS ORDERED: ACETAMINOPHEN 500 MG TABLET PO STA (17:06)
--- NOTE | 2021-07-28 17:08 | ED Physician Documentation ---
PD HPI BACK PAIN - Stated complaint Stated Complaint: GLF - Chief complaint Chief Complaint: Trauma Ch/Bk - History obtained from History obtained from: Patient - Additional information Additional information: She was at work, she cleans houses. She slipped and fell on her back and hit her right side of the back on the ground and has moderate pain in the right mid back. No other injuries except for an abrasion on her elbow which is not painful. No head injury. This happened today at 3 PM. Review of Systems Nose: denies: Rhinorrhea / runny nose, Epistaxis Cardiac: denies: Palpitations Respiratory: denies: Dyspnea, Cough Musculoskeletal: denies: Pain with weight bearing Neurologic: denies: Headache, LOC PD PAST MEDICAL HISTORY - Past Surgical History Past Surgical History: No - Present Medications Home Medications: Ambulatory Orders Medication Instructions Recorded Confirmed Hydrocodone/Acetaminophen [Petaluma 1 each PO Q6H PRN #20 tablet 01/08/16 5-325 Tablet] Ibuprofen [Motrin] 600 mg PO TID #30 tab 01/08/16 methocarbamoL [Robaxin] 500 mg PO Q6H PRN #25 tablet 01/08/16 Terbinafine [LamISIL] 250 mg PO DAILY PM #14 tablet 03/25/16 Albuterol Sulf [Ventolin Hfa 1 - 2 puffs INH Q4HR PRN #1 inhaler 01/29/21 Inhaler] Benzonatate [Tessalon] 200 mg PO QID PRN #20 cap 01/29/21 HYDROcod/ACETAM 5/325 [Petaluma 5/325] 1 - 2 tab PO Q6H PRN #15 tablet 07/28/21 - Allergies Allergies/Adverse Reactions: Allergies Allergy/AdvReac Type Severity Reaction Status Date / Time Penicillins Allergy Unknown Verified 07/28/21 16:50 - Social History Does the pt smoke?: No Smoking Status: Never smoker Does the pt drink ETOH?: Yes Does the pt have substance abuse?: No - Immunizations Immunizations are current?: No PD ED PE NORMAL - Vitals Vital signs reviewed: Yes - General General: Alert and oriented X 3, No acute distress - HEENT HEENT: PERRL, EOMI - Neck Neck: Supple, no meningeal sign, No bony TTP - Cardiac Cardiac: RRR, No murmur - Respiratory Respiratory: No respiratory distress, Clear bilaterally - Abdomen Abdomen: Non tender - Extremities Extremities: Other (Tender to the low lateral posterior ribs on the right. No midline spinal tenderness. Elbow has full range of motion and nontender.) - Neuro Neuro: Alert and oriented X 3, Normal speech Results - Vitals Vitals: Vital Signs - 24 hr 07/28/21 16:46 Temperature 36.2 C L Heart Rate 66 Respiratory 16 Rate Blood Pressure 167/96 H O2 Saturation 99 Oxygen O2 Source Room air - Rads (name of study) R ribs and chest Radiology: EMP read contemporaneously (NAD) Departure - Departure Disposition: Home, Self Care Clinical Impression: Contusion of chest wall Qualifiers: Encounter type: initial encounter Laterality: right Qualified Code(s): S20.211A - Contusion of right front wall of thorax, initial encounter Condition: Good Record reviewed to determine appropriate education?: Yes Instructions: ED Contusion Chest Wall Prescriptions: HYDROcod/ACETAM 5/325 [Petaluma 5/325] 1 - 2 tab PO Q6H PRN #15 tablet PRN Reason: Pain Comments: I sent your prescription electronically to [facility] in [place]. If you can get away with it take Tylenol and ibuprofen for pain but you will have the stronger medication as needed. Follow-up with your doctor if not improved in a week. Return for new or worsening symptoms. I am prescribing a short course of narcotic pain medication for you. These are potentially dangerous and addictive medications that should be used carefully. These medications may constipate you. Take an bjts-jbv-inzfzdr stool softener (docusate) twice daily with plenty of water while taking these medications. If you go 24 hours without a bowel movement, take alvm-ajw-yymamaj miralax, per package instructions. Do not drink or drive while taking these medications. If you received narcotic or sedating medications while in the emergency department, do not drive for 24 hours. Store this medication in a safe, secure place and out of reach of children. It is a violation of federal law to give or sell this medication to another person or to use in a manner other than prescribed. The ED will not refill narcotic prescriptions, including prescriptions lost or stolen. To dispose of unwanted medications: 1. [facility] [address] in [place] has a medication drop box. They accept prescription medications (in pill form) Tuesday through Tuesday 9:00 a.m. to 5:00 p.m. 2. The [facility] [place] [employer] accepts prescription medications (in pill form only) for disposal year round. Call for more information. 3. Contact the [facility] for the next [facility] sponsored prescription drug collection event. , [phone], or [phone]; Note that many narcotic pain relievers also contain Tylenol/acetaminophen. Please ensure that your total dose of acetaminophen from all sources does not exceed 3 g (3000 mg) per day. Forms: Activity restrictions
--- NOTE | 2021-07-28 17:42 | XRAY Report ---
PROCEDURE: Ribs w/PA Chest RT INDICATIONS: post r rib inj TECHNIQUE: 2 views of the right ribs were acquired, along with a single view chest. COMPARISON: None FINDINGS: Surgical changes and devices: None. Bones and chest wall: No fractures or dislocations. No suspicious bony lesions. Overlying soft tis sues appear unremarkable. Lungs and pleura: No pleural effusions or pneumothorax. Lungs appear clear. Mediastinum: Mediastinal contours appear normal. Heart size is normal. IMPRESSION: No acute fracture. No osseous lesion. If symptoms and/or clinical suspicion for pathology continue, f urther assessment with repeat plain films, or advanced imaging (e.g., CT or bone scan) is recommended for further assessment. Reviewed by: Amna Morirson MD on 07/28/2021 5:40 PM PST Approved by: Amna Morrison MD on 07/28/2021 5:40 PM PST Station ID: [id number]
[2021-07-28 18:07] VITALS: BP 136/90
== END 2021-07-28 18:05 | disposition home or self-care (01) ==
LOC: ED 16:34
DX: S20.211A Contusion of right front wall of thorax, initial encounter (principal); W01.0XXA Fall on same level from slipping, tripping and stumbling without subsequent striking against object, initial encounter; Y93.E9 Activity, other interior property and clothing maintenance; Y99.0 Civilian activity done for income or pay
CPT/HCPCS: 71101; 99283; A9270; 1040M

== ENCOUNTER 2021-11-18 07:05 | Outpatient (CLI) | payer OTHER ==
[2021-11-18 07:35] LABS: ALBUMIN 4.1 g/dL (3.2-5.5); ALBUMIN/GLOBULIN RATIO 1.3 (1.0-2.2); BILIRUBIN,TOTAL 0.7 mg/dL (0.2-1.0); CALCIUM 9.7 mg/dL (8.5-10.3); CREATININE 0.7 mg/dL (0.4-1.0); POTASSIUM 4.4 mmol/L (3.5-5.0); TOTAL PROTEIN 7.2 g/dL (6.7-8.2)
[2021-11-18 07:48] LABS: T4 (THYROXINE) 6.35 ug/dL (6.09-12.23)
[2021-11-18 07:52] LABS: THYROID STIMULATING HORMONE 31.6 uIU/mL (0.34-5.60)
== END 2021-11-18 07:06 | disposition home or self-care (01) ==
LOC: LAB 07:05
PROVIDERS: ATTEND Internal Medicine
DX: E03.9 Hypothyroidism, unspecified (principal); R79.89 Other specified abnormal findings of blood chemistry; D51.8 Other vitamin B12 deficiency anemias; Z79.899 Other long term (current) drug therapy
CPT/HCPCS: 36415; 80053; 84436; 84443

== ENCOUNTER 2022-02-05 08:00 | Outpatient (CLI) | payer OTHER ==
--- NOTE | 2022-02-05 14:26 | XRAY Report ---
PROCEDURE: Finger(s) RT INDICATIONS: RIGHT INDEX FINGER PAIN TECHNIQUE: AP hand, 3 views of the second finger(s) acquired. COMPARISON: None FINDINGS: Bones: No fractures or dislocations. No suspicious bony lesions. Soft tissues: No suspicious soft tissue calcifications. IMPRESSION: No visualized acute fracture or dislocation. However, occult injury cannot be excluded. Recommend dhaval rt interval imaging follow-up in 7-10 days as clinically indicated for additional evaluation. Reviewed by: Tori Guerrero MD on 02/05/2022 2:25 PM PDT Approved by: Tori Guerrero MD on 02/05/2022 2:25 PM PDT Station ID: [id number]
== END 2022-02-05 23:59 | disposition home or self-care (01) ==
LOC: DI.S 08:00
PROVIDERS: ATTEND Physician Assistant
DX: M79.644 Pain in right finger(s) (principal)

== ENCOUNTER 2022-08-06 07:52 | Outpatient (CLI) | payer OTHER ==
--- NOTE | 2022-08-09 10:17 | Mammography Report ---
BILATERAL DIGITAL SCREENING MAMMOGRAM 3D/2D: 08/06/2022 CLINICAL: Routine screening. Family history of breast cancer. Comparison is made to exams dated: 02/05/2020 mammogram, 07/07/2017 mammogram, and 06/15/2017 mammogra m - [facility]. There are scattered areas of fibroglandular density in both breasts (category b / 25%-50% glandular t issue). No significant masses, calcifications, or other findings are seen in either breast. There has been no significant interval change. IMPRESSION: NEGATIVE There is no mammographic evidence of malignancy. A 1 year screening mammogram is recommended. Based on the Tyrer Cuzick model (a risk assessment model) the patients lifetime risk is 10.5% and he r 10 year risk is 4.3%. According to the ACR, ACS, and NCCN guidelines, an annual breast MRI exam tianna ng with mammogram is recommended if the patients lifetime risk is 20% or greater. This exam was interpreted at Station ID: [id number]. NOTE: For mammograms, a report in lay terms will be sent to the patient. Approximately 15% of breast malignancies will not be visualized mammographically. In the management of a palpable breast mass, a negative mammogram must not discourage biopsy of a clinically suspicious lesion. Electronically Signed By: Marcellus allred/rob:08/06/2022 18:16:48 ACR BI-RADS Category 1: Negative 3341F PARENCHYMAL PATTERN: (A) - The breast(s) demonstrate(s) scattered fibroglandular densities. BI-RADS CATEGORY: (1) - 1 RECOMMENDATION: (ANNUAL) - Recommend routine annual screening mammography. [id number] 1 year screening LATERALITY: (B)
== END 2022-08-06 07:53 | disposition home or self-care (01) ==
LOC: DI 07:52
PROVIDERS: ATTEND Internal Medicine
DX: Z12.31 Encounter for screening mammogram for malignant neoplasm of breast (principal); Z80.3 Family history of malignant neoplasm of breast

== ENCOUNTER 2023-02-09 08:00 | Outpatient (CLI) | payer OTHER ==
--- NOTE | 2023-02-10 09:41 | XRAY Report ---
PROCEDURE: Cervical Spine 2 View INDICATIONS: PAIN IN NECK TECHNIQUE: 3 view(s) of the cervical spine were acquired. COMPARISON: Prior cervical spine series dated 05/11/2017 FINDINGS: Bones: No fractures or dislocations to the T1 level. The lateral masses of C1 appear intact on the odontoid view. No suspicious bony lesions. Loss of the normal cervical lordosis. Mild disc height l oss at the C5-C6, C6 exiting C7 and C7-T1 levels. Mild multilevel mid and lower cervical spine facet joint arthropathy. Soft tissues: No prevertebral soft tissue swelling. IMPRESSION: Loss of lordosis and mild multilevel cervical spine spondylosis. Reviewed by: ARISTIDES Mello on 02/10/2023 9:40 AM PDT Approved by: Shayne Moore MD on 02/10/2023 9:40 AM PDT Station ID: [id number]
--- NOTE | 2023-02-10 10:00 | XRAY Report ---
PROCEDURE: Wrist 2 View RT INDICATIONS: PAIN IN RIGHT WRIST TECHNIQUE: 2 views of the wrist were acquired. COMPARISON: None. FINDINGS: Bones: No fractures or dislocations. No suspicious bony lesions. Soft tissues: No suspicious soft tissue calcifications or masses. IMPRESSION: No fracture or dislocation. If pain persist with conservative management, consider CT or MRI. Reviewed by: ARISTIDES Mello on 02/10/2023 9:59 AM PDT Approved by: Shayne Moore MD on 02/10/2023 9:59 AM PDT Station ID: [id number]
--- NOTE | 2023-02-10 10:00 | XRAY Report ---
PROCEDURE: Lumbar Spine 2 View INDICATIONS: PAIN IN LOW BACK TECHNIQUE: 3 views of the lumbar spine were acquired. COMPARISON: Prior lumbar spine series dated 04/28/2016 FINDINGS: Bones: 5 yue-ovq-efpnjdy vertebrae are present. Mild levoscoliosis centered at the L3 level. Multile amna grade 1 retrolisthesis. Multilevel disc height loss with endplate sclerosis and spurring, most no tably and severe at the L2-L3 and L5-S1 levels. Mild L5-S1 facet joint arthropathy. No vertebral bod y compression fractures. No suspicious bony lesions. Soft tissues: Overlying bowel gas pattern is normal. No suspicious soft tissue calcifications. IMPRESSION: Multilevel lumbar spine spondylosis, most notably at the L2-L3 and L5-S1 levels. Reviewed by: ARISTIDES Mello on 02/10/2023 9:59 AM PDT Approved by: Shayne Moore MD on 02/10/2023 9:59 AM PDT Station ID: [id number]
== END 2023-02-09 23:59 | disposition home or self-care (01) ==
LOC: DI.S 08:00
PROVIDERS: ATTEND Nurse Practitioner
DX: M25.531 Pain in right wrist (principal); M47.812 Spondylosis without myelopathy or radiculopathy, cervical region; M47.816 Spondylosis without myelopathy or radiculopathy, lumbar region; M47.817 Spondylosis without myelopathy or radiculopathy, lumbosacral region

== ENCOUNTER 2023-02-16 09:28 | Emergency (ER) | payer OTHER ==
[2023-02-16 09:47] VITALS: O2SAT 99
--- OUTSIDE RECORDS SUMMARY | 2023-02-16 10:10 | EXTERNAL MEDICAL SUMMARY RPT | Continuity of Care Document ---
Author Name Unknown Address [address] [place] [address] Phone Organization [facility] Address [address] [place] [address] Phone Care Team Providers Care Pipelines Supervisor Name Role Phone Unavailable Unavailable Unavailable [employer] Enp, Seema Unavailable Unavail able Johnnie Patient Registrar, Antolin Unavailable U navailable Medications date description facility 2023-02-15 00:00 cephalexin [facility] 2023-02-15 00:00 cephalexin [facility] 2023-02-09 00:00 meloxicam [facility] 2023-02-09 00:00 meloxicam [facility] 2023-02-15 00:00 cephalexin [facility] 2023-02-15 00:00 cephalexin [facility] 2023-02-09 00:00 meloxicam [facility] 2023-02-09 00:00 meloxicam [facility] 2023-02-09 00:00 meloxicam [facility] 2023-02-09 00:00 meloxicam [facility] 2023-02-09 00:00 meloxicam [facility] 2023-02-09 00:00 meloxicam [facility] Problems date description facility 2023-02-09 00:00 Low back pain [facility] 2023-02-09 00:00 Low back pain [facility] 2023-02-09 00:00 Pain of right wrist [facility] 2023-02-09 00:00 Pain of right wrist [facility] 2023-02-09 00:00 Pain in joint involving forearm [facility] 2023-02-09 00:00 Pain in joint involving forearm [facility] 2023-02-09 00:00 Lumbago [facility] 2023-02-09 00:00 Lumbago [facility] 2023-02-09 00:00 Degeneration of spine [facility] 2023-02-09 00:00 Degeneration of spine [facility] 2023-02-09 00:00 Neck pain [facility] 2023-02-09 00:00 Neck pain [facility] 2023-02-09 00:00 Pain in right wrist [facility] 2023-02-09 00:00 Pain in right wrist [facility] 2023-02-09 00:00 Spondylosis, unspecified [facility] 2023-02-09 00:00 Spondylosis, unspecified [facility] 2023-02-09 00:00 Cervicalgia [facility] 2023-02-09 00:00 Cervicalgia [facility] 2023-02-09 00:00 Low back pain, unspecified [facility] 2023-02-09 00:00 Low back pain, unspecified [facility] 2023-02-15 00:00 Cellulitis [facility] 2023-02-15 00:00 Hypertensive disorder [facility] [place] 2023-02-15 00:00 Benign essential hypertension [facility] 2023-02-15 00:00 Allergy to bee venom [facility] [place] 2023-02-15 00:00 Cellulitis and absce ss of unspecified sites [facility] [place] 2023-02-15 00:00 Toxic effect of venom [facility] [place] 2023-02-15 00:00 Essential (primary) hypertensio n [facility] [place] 2023-02-15 00:00 Cellulitis, unspecified [facility] [place] 2023-02-15 00:00 Bee allergy status [facility] [place] Procedures date description facility 2023-02-09 00:00 Visit Code Hold [facility] [place] 2023-02-09 00:00 Visit Code Hold [facility] [place] 2023-02-15 00:00 Visit Code Hold [facility] [place] 2023-02-09 00:00 XR CERVICAL SPINE 2 OR 3 VIEW [facility] [place] 2023-02-09 00:00 XR CERVICAL SPINE 2 OR 3 VIEW [facility] [place] 2023-02-09 00:00 XR LUMBAR SPINE 2-3 VIEW [facility] [place] 2023-02-09 00:00 XR LUMBAR SPINE 2-3 VIEW [facility] [place] Social History date description facility 2023-02-09 00:00 Former smoker [facility] [place] 2023-02-09 00:00 Former smoker [facility] [place] 2023-02-15 00:00 Former smoker [facility] [place] Vital Signs date measurement value units 2023-02-09 00:00 BMI 27.56 kg/m2 2023-02-09 00:00 BP_diastolic 88 mmHg 2023-02-09 00:00 BP_systolic 146 mmHg 2023-02-09 00:00 heart_rate 64 /min 2023-02-09 00:00 height_metric 165.1 cm 2023-02-09 00:00 height_standard 65 in 2023-02-09 00:00 respiration_rate 16 /min 2023-02-09 00:00 temperature_metric 36.11 C 2023-02-09 00:00 temperature_standard 97 F 2023-02-09 00:00 weight_metric 74.84 kg 2023-02-09 00:00 weight_standard 165 lb 2023-02-15 00:00 BMI 28.06 kg/m2 2023-02-15 00:00 BP_diastolic 90 mmHg 2023-02-15 00:00 BP_systolic 151 mmHg 2023-02-15 00:00 heart_rate 98 /min 2023-02-15 00:00 height_metric 165.1 cm 2023-02-15 00:00 height_standard 65 in 2023-02-15 00:00 respiration_rate 15 /min 2023-02-15 00:00 temperature_metric 36.39 C 2023-02-15 00:00 temperature_standard 97.5 F 2023-02-15 00:00 weight_metric 76.2 kg 2023-02-15 00:00 weight_standard 168 lb
--- NOTE | 2023-02-16 10:43 | ED Physician Documentation ---
PD HPI SKIN - Stated complaint Stated Complaint: BEE STING - Chief complaint Chief Complaint: General - History obtained from History obtained from: Patient - History of Present Illness Timing - onset: How many days ago (3) Timing - duration: Days (3) Timing - details: Abrupt onset (she was stung by bee in right lateral thigh and had onset of pain, redness, swelling that persisted into next day and next. No improvement noted. Redness extended some toward anterior thigh and lower lateral thigh. Did not increase much but not lessening.), Still present Quality / character: Discolored, Swelling. No: Vesicular, Draining Recently seen: Clinic (seen at Walk [facility] yesterday and Rx Keflex for possible cell ulitis. Told to recheck if increased size. Pt states the degree of redness and warmth has improved since yesterday. The area has increased slightly downward and medial to draw demarcation of it from yesterday.) Review of Systems Constitutional: denies: Fever, Chills Neurologic: denies: Focal weakness, Numbness PD PAST MEDICAL HISTORY - Past Medical History Past Medical History: Yes - Past Surgical History Past Surgical History: No - Present Medications Home Medications: Ambulatory Orders Medication Instructions Recorded Confirmed Hydrocodone/Acetaminophen [[place] 1 each PO Q6H PRN #20 tablet 01/08/16 5-325 Tablet] Ibuprofen [Motrin] 600 mg PO TID #30 tab 01/08/16 methocarbamoL [Robaxin] 500 mg PO Q6H PRN #25 tablet 01/08/16 Terbinafine [LamISIL] 250 mg PO DAILY PM #14 tablet 03/25/16 Albuterol Sulf [Ventolin Hfa 1 - 2 puffs INH Q4HR PRN #1 inhaler 01/29/21 Inhaler] Benzonatate [Tessalon] 200 mg PO QID PRN #20 cap 01/29/21 HYDROcod/ACETAM 5/325 [[place] 5/325] 1 - 2 tab PO Q6H PRN #15 tablet 07/28/21 - Allergies Allergies/Adverse Reactions: Allergies Allergy/AdvReac Type Severity Reaction Status Date / Time Penicillins Allergy Unknown Verified 02/16/23 09:42 - Social History Does the pt smoke?: No Smoking Status: Never smoker Does the pt drink ETOH?: Yes Does the pt have substance abuse?: No - Immunizations Immunizations are current?: No PD ED PE NORMAL - Vitals Vital signs reviewed: Yes - General General: Alert and oriented X 3, No acute distress, Well developed/nourished - Derm Derm: Normal color, Warm and dry, Other (there is some redness mild in area of sting and sourrounding. Minimal warmth and degree of redness. ) - Extremities Extremities: Other (right anterolateral mid thigh with firmer area of induration. Surrounding that is faint redness aiwth some purple coloring (though mild). drawn border with blue skin marker shows there is mild faint redness outside the border.) - Neuro Neuro: Alert and oriented X 3, No motor deficit, No sensory deficit Results - Vitals Vitals: Vital Signs - 24 hr 02/16/23 02/16/23 09:38 11:12 Temperature 36.7 C 36.6 C Heart Rate 69 65 Respiratory 20 19 Rate Blood Pressure 145/91 H 133/88 H O2 Saturation 99 99 Oxygen O2 Source Room air PD Medical Decision Making - ED course Complexity details: considered differential (minimall warm and medium redness. Pt states the degree of redness less than yesterday though the area of it is slightly enlarged ifneriorly. ), d/w patient ED course: It seems the antibiotic is helping with less intensely red and warm skin in the area per patient. I would think the antibioticss are helping or just good coincidence with it going to get better from just prolonged venom effect. Departure - Departure Disposition: 01 Home, Self Care Clinical Impression: Bee sting reaction Qualifiers: Encounter type: subsequent encounter Injury intent: undetermined intent Qualified Code(s): T63.444D - Toxic effect of venom of bees, undetermined, subsequent encounter Condition: Stable Record reviewed to determine appropriate education?: Yes Follow-Up: Tiara Gaxiola MD [Primary Care Provider] - Comments: Since the warmth and degree of redness are improved and this is only slightly outside the previously drawn lines, I would say that the antibiotics sound like they are doing adequate. I would continue on them. Some anti-inflammatory such as ibuprofen or naproxen may be helpful. Some warm moist towels to the area periodically. Recheck if not consistently improved over the next several days more. The faint bruising coloration in the area will likely take a week or more to resolve. Forms: PCP List Discharge Date/Time: 02/16/23 11:12
[2023-02-16 11:13] VITALS: BP 133/88
== END 2023-02-16 11:12 | disposition home or self-care (01) ==
LOC: ED 09:28
DX: T63.441A Toxic effect of venom of bees, accidental (unintentional), initial encounter (principal)
CPT/HCPCS: 99282; 99283

== ENCOUNTER 2023-09-02 07:26 | Outpatient (CLI) | payer OTHER ==
--- NOTE | 2023-09-02 11:27 | Ultrasound Report ---
PROCEDURE: Abdomen Limited INDICATIONS: ABNORMAL LABS TECHNIQUE: Real-time focused scanning was performed of the abdomen, with image documentation. COMPARISONS: Abdominal ultrasound 01/29/2021 FINDINGS: Liver: Liver is normal in size and homogeneous in echotexture. Gallbladder: The gallbladder appears normal without gallstones or gallbladder wall thickening. Focal adenomyomatosis is noted with associated comet tail artifact. There is no pericholecystic fluid. Sono graphic Mondragon sign is negative. Biliary ducts: Intrahepatic bile ducts are non-dilated. Extrahepatic bile duct caliber measures 6 m m. Normal is 6-7 mm or less in diameter, or 10 mm or less post-cholecystectomy. Pancreas: Visualized portions of the pancreas are sonographically normal. Right kidney: Normal in size and echotexture. Right kidney measures 10.1 cm long. No hydronephrosis or nephrolithiasis. No solid masses. No complex renal cystic lesions which require follow-up. Aorta: Visualized aorta is normal in caliber at less than 3 cm. IVC: Intrahepatic inferior vena cava is patent. Miscellaneous: No free abdominal fluid. IMPRESSION: 1.No acute sonographic abnormality in the right upper quadrant. 2.Common bile duct again at the upper limits of normal without a filling defect. 3.Incidental gallbladder adenomyomatosis. Reviewed by: Sal Doe MD on 09/02/2023 11:26 AM PST Approved by: Sal Doe MD on 09/02/2023 11:26 AM PST Station ID: [id number]
--- NOTE | 2023-09-02 11:31 | Ultrasound Report ---
PROCEDURE: Soft Tissue Head or Neck INDICATIONS: HYPOTHYROIDISM TECHNIQUE: Real-time scanning was performed of the thyroid gland, with image documentation. COMPARISON: Thyroid ultrasound 08/02/2019 FINDINGS: Right: Thyroid lobe measures 1.4 x 3.1 x 1.0 cm, and is homogeneous in echotexture. Left: Thyroid lobe measures 2.5 x 1.2 x 1.3 cm, and is homogenous in echotexture. Isthmus: 0.3 cm thick. Nodule number: One Location: Right inferior Size: 1.0 x 0.7 x 0.8 cm, unchanged. Composition: Solid (2 points). Echogenicity: Hypoechoic (2 points). Shape: wider than tall (0 points). Margins: Smooth (0 points). Echogenic foci: None (0 points). Total points: 4 ACR TI-RADS category: TI-RADS 4: Moderately suspicious. Nodule number: Two Location: Left inferior Size: 0.8 x 0.7 x 0.7 cm, previously 1.5 x 0.9 x 1.1 cm Composition: Solid (2 points). Echogenicity: Hypoechoic (2 points). Shape: wider than tall (0 points). Margins: Smooth (0 points). Echogenic foci: None (0 points). Total points: 4 ACR TI-RADS category: TI-RADS 4: Moderately suspicious. IMPRESSION: Bilateral moderately suspicious thyroid nodules. Left thyroid nodule has decreased in si ze. Recommend continued sonographic follow-up based on guidelines provided below. ACR TI-RADS definitions and recommendations: TI-RADS 1 (benign): 0 points. FNA not needed. TI-RADS 2 (not suspicious): 2 points. FNA not needed. TI-RADS 3 (mildly suspicious): 3 points. "FNA if 2.5 cm or larger, follow up if 1.5 cm or larger (at 1, 3, and 5 years). TI-RADS 4 (moderately suspicious): 4-6 points. "FNA if 1.5 cm or larger, follow up if 1 cm or larger (at 1, 2, 3, and 5 years). TI-RADS 5 (highly suspicious): 7 points or more. "FNA if 1 cm or larger, follow up if 0.5 cm or larger (every year for 5 years). Reviewed by: Sal Doe MD on 09/02/2023 11:30 AM PST Approved by: Sal Doe MD on 09/02/2023 11:30 AM PST Station ID: [id number]
== END 2023-09-02 07:27 | disposition home or self-care (01) ==
LOC: DI 07:26
PROVIDERS: ATTEND Internal Medicine
DX: E03.9 Hypothyroidism, unspecified (principal); R79.89 Other specified abnormal findings of blood chemistry; E04.2 Nontoxic multinodular goiter; Z12.31 Encounter for screening mammogram for malignant neoplasm of breast; R92.323 Mammographic fibroglandular density, bilateral breasts

== ENCOUNTER 2023-09-02 07:26 | Outpatient (CLI) | payer OTHER ==
--- NOTE | 2023-09-05 08:35 | Mammography Report ---
BILATERAL DIGITAL SCREENING MAMMOGRAM 3D/2D: 09/02/2023 CLINICAL: Routine screening. Comparison is made to exams dated: 08/06/2022 mammogram, 02/05/2020 mammogram, 07/07/2017 mammogram, a nd 06/15/2017 mammogram - [facility]. There are scattered areas of fibroglandular density in both breasts (category b / 25%-50% glandular t issue). No significant masses, calcifications, or other findings are seen in either breast. There has been no significant interval change. IMPRESSION: NEGATIVE There is no mammographic evidence of malignancy. A 1 year screening mammogram is recommended. Based on the Tyrer Cuzick model (a risk assessment model) the patient's lifetime risk is 10.3% and he r 10 year risk is 4.3%. According to the ACR, ACS, and NCCN guidelines, an annual breast MRI exam tianna ng with mammogram is recommended if the patient's lifetime risk is 20% or greater. This exam was interpreted at Station ID: [id number]. NOTE: For mammograms, a report in lay terms will be sent to the patient. Approximately 15% of breast malignancies will not be visualized mammographically. In the management of a palpable breast mass, a negative mammogram must not discourage biopsy of a clinically suspicious lesion. Electronically Signed By: Rashad hernandez/rob:09/02/2023 21:12:07 letter sent: No_Letter ACR BI-RADS Category 1: Negative 3341F PARENCHYMAL PATTERN: (A) - The breast(s) demonstrate(s) scattered fibroglandular densities. BI-RADS CATEGORY: (1) - 1 Mammogram [id number] 1 year screening LATERALITY: (B)
== END 2023-09-02 07:27 | disposition home or self-care (01) ==
LOC: DI 07:26
DX: Z12.31 Encounter for screening mammogram for malignant neoplasm of breast (principal); R92.323 Mammographic fibroglandular density, bilateral breasts